=== PATIENT | female | born 1960 | race Caucasian/White ===

== ENCOUNTER 2016-08-31 14:58 | Emergency (ER) | payer OTHER ==
[~2016-08-31] VITALS: Ht 162.6 cm; Wt 83.9 kg
[2016-08-31 15:07] VITALS: BP 139/90
--- NOTE | 2016-08-31 15:57 | ED DYSPNEA/ASTHMA COMPLAINT ---
History of Present Illness General Chief Complaint: General Adult Stated Complaint: ANXIETY Source: patient Exam Limitations: no limitations Vital Signs & Intake/Output Vital Signs & Intake/Output Vital Signs Date Time Temp Pulse Resp B/P B/P Pulse O2 O2 Flow FiO2 Mean Ox Delivery Rate 08/31 1507 97.3 96 16 139/90 97 Room Air Allergies Coded Allergies: MDX - Aspirin (ASPIRIN) (HIVES 05/21/11) MDX - Azithromycin (Azithromycin) (HIVES/RASH 11/20/11) MDX - Latex (LATEX) (ITCHING 12/07/11) MDX - Penicillin (PENICILLIN) (HIVES 05/21/11) Uncoded Allergies: ZPACK (Severe, HIVES/RASH 11/20/11) Reconcile Medications Alprazolam (Xanax) 0.5 MG TABLET 1 TAB PO BIDP PRN ANXIETY Atorvastatin Calcium 20 MG TABLET 1 TAB PO DAILY HEART HEALTH (Reported) Triage Note: PT STATES SHE HAS BEEN HAVING PROBLEMS WITH HER ANXIETY SINCE MONDAY. PT STATES SHE WENT TO [facility] MONDAY AND STATES THEY GAVE HER A SCRIPT FOR VISTERIL AND IT DIDN'T HELP HER. Triage Nurses Notes Reviewed? yes Onset: Abrupt Duration: gone now, intermittent Timing: recent history Severity: moderate HPI: Patient is a 55-year-old female with a past medical history of anxiety, depression, and PTSD who presents emergency room stating that for many years she 's had anxiety like symptoms that have been unmedicated in which she states in the past 10 days her symptoms of anxiety have worsened. Patient states that she 's had heart palpitations due to emotional stress that have come and gone. Patient currently is asymptomatic Patient states that she was seen in urgent care facility and was prescribed Vistaril with no improvement of symptoms. Patient denies any suicidal or homicidal ideation. Denies any illicit drug use. Patient currently is evaluated at [facility] and was requesting a new provider. She states that her symptoms are making it difficult for her to perform ADL (LUCY GALLEGOS,CLARA) Past History Travel History Traveled to [place] past 21 day No Medical History Any Pertinent Medical History? see below for history Cardiovascular: hyperlipidemia Gastrointestinal: GERD Psychiatric: depression, PTSD Surgical History Surgical History: non-contributory Psychosocial History What is your primary language Syriac Tobacco Use: Current Daily Use Daily Tobacco Use Amount/Type: => 5 Cigarettes daily ETOH Use: denies use Illicit Drug Use: denies illicit drug use Family History Hx Contributory? No (CLARA ELLIS) Review of Systems Review of Systems Constitutional: Reports: no symptoms. EENTM: Reports: no symptoms. Respiratory: Reports: no symptoms. Cardiovascular: Reports: see HPI. GI: Reports: no symptoms. Genitourinary: Reports: no symptoms. Musculoskeletal: Reports: no symptoms. Skin: Reports: no symptoms. Neurological/Psychological: Reports: see HPI, anxiety. Hematologic/Endocrine: Reports: no symptoms. Immunologic/Allergic: Reports: no symptoms. All Other Systems: Reviewed and Negative (CLARA ELLIS) Physical Exam Physical Exam General Appearance: no apparent distress Respiratory: normal breath sounds, chest non-tender, no respiratory distress Comments: Well-developed well-nourished person in no acute distress HEENT: Normal EENT exam, Neck: Supple, no lymphadenopathy, normal range of motion without pain or tenderness Back: Nontender, no CVA tenderness. Cardiovascular: Regular rate and rhythms no murmurs rubs or gallops, normal JVP Respiratory: Chest nontender. No respiratory distress.breath sounds clear to auscultation bilaterally Abdomen: Soft, nontender nondistended, no appreciable organomegaly. Normal bowel sounds. No ascites Extremity: No edema, no calf tenderness to palpation, normal and equal pulses. Neuro: Alert oriented x3, motor sensory normal, cranial nerves II through XII grossly intact. Skin: No appreciable rash on exposed skin, skin is warm and dry. Psych: Mood and affect is normal, memory and judgment is normal. Core Measures ACS in differential dx? No Severe Sepsis Present: No Septic Shock Present: No (CLARA ELLIS) Progress Differential Diagnosis: asthma, AMI, bronchitis, costochondritis, CHF, COPD, musculoskeletal pain, pericarditis, pulmonary embolism, pneumonia, pneumothorax, rib fracture, unstable angina Plan of Care: Patient on initial examination and while in the emergency room was in no apparent distress. My suspicion of PE or myocardial infarction is extremely low as patient states that she's had symptoms chronically and currently is asymptomatic. Patient was requesting a new psychiatric provider in which I gave copy of the referral to patient. Patient will be prescribed a short course of benzodiazepine. Upon discharge patient looks well no apparent distress and will comply with discharge instructions and had no questions Initial ED EKG: none (CLARA ELLIS) Departure Departure Disposition: HOME OR SELF CARE Condition: Stable Clinical Impression Primary Impression: Anxiety Referrals: ISABELA GROSSMAN MD (PCP/Family) Additional Instructions: As discussed follow-up today with the list of counseling providers provided to you in the emergency room. Continue home medications as directed. Begin the prescription of Xanax as directed for symptoms. Prescriptions are waiting at [facility]. If symptoms worsen return to emergency room Departure Forms: Customer Survey General Discharge Information Prescriptions: Current Visit Scripts Alprazolam (Xanax) 1 TAB PO BIDP PRN ANXIETY #8 TAB (CLARA ELLIS) PA/GLASS BULB SILVERER Co-Sign Statement Statement: ED Attending supervision documentation- I saw and evaluated the patient. I have also reviewed all the pertinent lab results and diagnostic results. I agree with the findings and the plan of care as documented in the PA's/GLASS BULB SILVERER's documentation. x I have reviewed the ED Record and agree with the PA's/GLASS BULB SILVERER's documentation. [] Additions or exceptions (if any) to the PAs/GLASS BULB SILVERER's note and plan are summarized below: [] (KAROL NEWMAN,EULA) Critical Care Note Critical Care Note Critical Care Time: non-applicable (CLARA ELLIS)
[2016-08-31] MEDS ORDERED: XANAX0.5 M1 PO (16:15)
[2016-08-31] MEDS ORDERED: ATORVASTATIN CA20 M1 PO (16:36)
== END 2016-08-31 16:38 ==
LOC: ERH 14:58
DX: F41.9 Anxiety disorder, unspecified (principal)